=== PATIENT | female | born 1975 | race Caucasian/White ===

== ENCOUNTER 2019-01-31 17:45 | Observation (INO) | payer MEDICAID ==
[2019-01-31] MEDS ORDERED: Sodium Chloride 0.9% 2.5 ML Syringe FLUSH PRN (17:47)
[2019-01-31] MEDS ORDERED: Sodium Chloride 0.9% 10 ML Syringe FLUSH PRN (17:47)
--- NOTE | 2019-01-31 17:51 | EDM.PDOC ---
ED HPI GENERAL MEDICAL PROBLEM - General Stated Complaint: SURG ISSUES--DIZZY, NUMB Time Seen by Provider: 01/31/19 17:47 Source of Information: Reports: Patient History Limitations: Reports: No Limitations - History of Present Illness INITIAL COMMENTS - FREE TEXT/NARRATIVE: History of present illness: []Patient had a thyroidectomy on January [address] Shelton at [facility] and has had some complications with hypcalcemic. She was given an infusion of magnesium but complains of dizziness, numbness and tingling today. Dr. Wetzel brought some of her information her to arrival. Dr. Wetzel is requesting workup and admission. Review of systems: As per history of present illness and below otherwise all systems reviewed and negative. Past medical history: As per history of present illness and as reviewed below otherwise noncontributory. Surgical history: As per history of present illness and as reviewed below otherwise noncontributory. Social history: No reported history of drug or alcohol abuse. Family history: As per history of present illness and as reviewed below otherwise noncontributory. Physical exam: General: Well developed, well nourished in NAD HEENT: Atraumatic, normocephalic, pupils reactive, negative for conjunctival pallor or scleral icterus, mucous membranes moist, throat clear, neck supple, nontender, trachea midline. Lungs: Clear to auscultation, breath sounds equal bilaterally, chest nontender. Heart: S1S2, regular, negative for clicks, rubs, or JVD. Abdomen: NABS, Soft, nondistended, nontender. Negative for masses or hepatosplenomegaly. Negative for costovertebral tenderness. Pelvis: Stable nontender. Genitourinary: Deferred. Rectal: Deferred. Extremities: Atraumatic, negative for cords or calf pain. Neurovascular unremarkable. Neuro: Awake, alert, oriented. Cranial nerves II through XII unremarkable. Cerebellum unremarkable. Motor and sensory unremarkable throughout. Exam nonfocal. Skin:warm and dry Diagnostics: CBC, chemistry, magnesium, phosphorus Therapeutics: Admit ED Course: patient admitted to Dr. Salgado Impression: Hypocalcemia, hypomagnesia, status post thyroidectomy Prescriptions: None Plan: Admit For calcium , magnesium correction Definitive disposition and diagnosis as appropriate pending reevaluation and review of above. throat Pain Score (Numeric/FACES): 7 - Related Data Allergies Allergy/AdvReac Type Severity Reaction Status Date / Time No Known Allergies Allergy Verified 01/31/19 17:58 Home Meds: Home Meds Ibuprofen 200 mg PO ASDIRECTED 05/06/18 [History] Acetaminophen [Tylenol] 650 mg PO Q4H PRN 01/31/19 [History] Acetaminophen/oxyCODONE [Percocet 325-5 MG] 5 - 325 tab PO Q4H PRN 01/31/19 [ History] Calcium Carbonate/Vitamin D3 [Calcium 500+D Tablet Chew] 300 - 500 mg PO TID 06/09 [History] Liothyronine [Cytomel] 25 mcg PO BID 01/31/19 [History] Past Medical History - Past Health History Medical/Surgical History: Denies Medical/Surgical History HEENT History: Reports: Other (See Below) Other HEENT History: 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, , Spontaneous Musculoskeletal History: Reports: Back Pain, Chronic Neurological History: Reports: Migraines, Other (See Below) Other Neuro History: has herniated disc in lumbar area Endocrine/Metabolic History: Reports: Obesity/BMI 30+, Other (See Below) Other Endocrine/Metabolic History: has a "lump" on her thyroid- Ultrasound scheduled Immunologic History: Reports: Other (See Below) Other Immunologic History: 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 - Past Surgical History HEENT Surgical History: Reports: Naso-Sinus Surgery, Tonsillectomy Female Surgical History: Reports: Section, D&C, Other (See Below) Other Female Surgeries/Procedures: Laparoscopy, Hysteroscopy Social & Family History - Caffeine Use Caffeine Use: Reports: Tea ED ROS GENERAL - Review of Systems Review Of Systems: See Below ED EXAM, GENERAL - Physical Exam Exam: See Below Course - Vital Signs Last Recorded V/S: Last Vital Signs Temp 97.2 F 01/31/19 17:50 Pulse 73 01/31/19 17:50 Resp 17 01/31/19 17:50 BP Pulse Ox 98 01/31/19 17:50 - Orders/Labs/Meds Orders: Active Orders 24 hr Category Date Time Status Patient Status [ADT] Stat ADT 01/31/19 18:06 Active Cardiac Monitoring [RC] CONTINUOUS Care 01/31/19 18:19 Active EKG Documentation Completion [RC] STAT Care 01/31/19 18:26 Active Intake and Output [RC] QSHIFT Care 01/31/19 18:19 Active Oxygen Therapy [RC] PRN Care 01/31/19 18:19 Active Up With Assistance [RC] ASDIRECTED Care 01/31/19 18:18 Active VTE/DVT Education [RC] PER UNIT ROUTINE Care 01/31/19 18:19 Active Vital Signs [RC] Q4H Care 01/31/19 18:19 Active Regular Diet [DIET] Diet 01/31/19 Dinner Active COMPREHENSIVE METABOLIC PN,CMP [CHEM] AM Lab 02/01/19 05:11 Ordered MAGNESIUM [CHEM] AM Lab 02/01/19 05:11 Ordered PHOSPHORUS [CHEM] AM Lab 02/01/19 05:11 Ordered Acetaminophen [Tylenol] Med 01/31/19 18:18 Active 650 mg PO Q4H PRN Acetaminophen/HYDROcodone [[place] 325-5 MG] Med 01/31/19 18:18 Active 1 tab PO Q4H PRN Calcium Carbonate/Vitamin D3 [Calcium 500+D Tablet Chew Med 01/31/19 22:00 Active ] 500 mg PO TID Enoxaparin [Lovenox] Med 01/31/19 18:30 Active 40 mg SUBCUT Q24H Liothyronine [Cytomel] Med 01/31/19 21:00 Active 25 mcg PO BID Magnesium Sulfate/Water [Magnesium Sulfate in Water Med 01/31/19 18:46 Active Premix] 2 gm Premix Bag 1 bag IV ONETIME Ondansetron [Zofran ODT] Med 01/31/19 18:18 Active 4 mg PO Q4H PRN Ondansetron [Zofran] Med 01/31/19 18:18 Active 4 mg IVPUSH Q4H PRN Sodium Chloride 0.9% [Saline Flush] Med 01/31/19 17:47 Active 10 ml FLUSH ASDIRECTED PRN Sodium Chloride 0.9% [Saline Flush] Med 01/31/19 17:47 Active 2.5 ml FLUSH ASDIRECTED PRN Saline Lock Insert [OM.PC] Stat Oth 01/31/19 17:47 Ordered Resuscitation Status Routine Resus Stat 01/31/19 18:18 Ordered Medication Orders Acetaminophen (Tylenol) 650 mg PO Q4H PRN PRN Reason: Pain (Mild 1-3)/fever Hydrocodone Bitart/Acetaminophen ([place] 325-5 Mg) 1 tab PO Q4H PRN PRN Reason: Pain (moderate 4-6) Enoxaparin Sodium (Lovenox) 40 mg SUBCUT Q24H [facility] Magnesium Sulfate 2 gm/ Premix 50 mls @ 25 mls/hr IV ONETIME ONE Stop: 01/31/19 20:45 Liothyronine Sodium (Cytomel) 25 mcg PO BID [facility] Non-Formulary Medication (Calcium Carbonate/Vitamin D3 [Calcium 500+D Tablet Chew]) 500 mg PO TID RADHA Ondansetron HCl (Zofran Odt) 4 mg PO Q4H PRN PRN Reason: nausea, able to take PO Ondansetron HCl (Zofran) 4 mg IVPUSH Q4H PRN PRN Reason: Nausea Sodium Chloride (Saline Flush) 10 ml FLUSH ASDIRECTED PRN PRN Reason: Keep Vein Open Sodium Chloride (Saline Flush) 2.5 ml FLUSH ASDIRECTED PRN PRN Reason: Keep Vein Open Labs: Laboratory Tests 01/31/19 01/31/19 01/31/19 Range/Units 18:12 18:12 18:28 WBC 9.24 (4.0-11.0) K/uL RBC 4.46 (4.30-5.90) M/uL Hgb 13.3 (12.0-16.0) g/dL Hct 39.8 (36.0-46.0) % MCV 89.2 (80.0-98.0) fL MCH 29.8 (27.0-32.0) pg MCHC 33.4 (31.0-37.0) g/dL RDW Std Deviation 45.0 (28.0-62.0) fl RDW Coeff of Michael 14 (11.0-15.0) % Plt Count 310 (150-400) K/uL MPV 10.20 (7.40-12.00) fL Neut % (Auto) 55.1 (48.0-80.0) % Lymph % (Auto) 35.7 (16.0-40.0) % [place] % (Auto) 8.0 (0.0-15.0) % Eos % (Auto) 1.0 (0.0-7.0) % Baso % (Auto) 0.2 (0.0-1.5) % Neut # (Auto) 5.1 (1.4-5.7) K/uL Lymph # (Auto) 3.3 H (0.6-2.4) K/uL [place] # (Auto) 0.7 (0.0-0.8) K/uL Eos # (Auto) 0.1 (0.0-0.7) K/uL Baso # (Auto) 0.0 (0.0-0.1) K/uL Nucleated RBC % 0.0 /100WBC Nucleated RBCs # 0 K/uL Ionized Calcium 3.2 L (4.6-5.1) mg/dL Sodium 140 (136-145) mmol/L Potassium 3.9 (3.5-5.1) mmol/L Chloride 103 (98-107) mmol/L Carbon Dioxide 26.0 (21.0-32.0) mmol/L BUN 14 (7.0-18.0) mg/dL Creatinine 0.7 (0.6-1.0) mg/dL Est Cr Clr Drug Dosing 87.49 mL/min Estimated GFR (MDRD) > 60.0 ml/min Glucose 88 (74-106) mg/dL Calcium 6.9 L (8.5-10.1) mg/dL Phosphorus 6.2 H (2.6-4.7) mg/dL Magnesium 1.6 L (1.8-2.4) mg/dL Total Bilirubin 0.6 (0.2-1.0) mg/dL AST 19 (15-37) IU/L ALT 23 (14-63) IU/L Alkaline Phosphatase 97 (46-116) U/L Total Protein 7.2 (6.4-8.2) g/dL Albumin 3.9 (3.4-5.0) g/dL Globulin 3.3 (2.6-4.0) g/dL Albumin/Globulin Ratio 1.2 (0.9-1.6) Meds: Medications Generic Name Dose Route Start Last Admin Trade Name Freq PRN Reason Stop Dose Admin Acetaminophen 650 mg 01/31/19 18:18 Tylenol PO Q4H PRN Pain (Mild 1-3)/fever Hydrocodone Bitart/Acetaminophen 1 tab 01/31/19 18:18 [place] 325-5 Mg PO Q4H PRN Pain (moderate 4-6) Enoxaparin Sodium 40 mg 01/31/19 18:30 Lovenox SUBCUT Q24H RADHA Magnesium Sulfate 2 gm/ Premix 50 mls @ 25 mls/hr 01/31/19 18:46 IV 01/31/19 20:45 ONETIME ONE Liothyronine Sodium 25 mcg 01/31/19 21:00 Cytomel PO BID RADHA Non-Formulary Medication 500 mg 01/31/19 22:00 Calcium Carbonate/Vitamin D3 [Calcium 500+D Tablet Chew] PO TID RADHA Ondansetron HCl 4 mg 01/31/19 18:18 Zofran Odt PO Q4H PRN nausea, able to take PO Ondansetron HCl 4 mg 01/31/19 18:18 Zofran IVPUSH Q4H PRN Nausea Sodium Chloride 10 ml 01/31/19 17:47 Saline Flush FLUSH ASDIRECTED PRN Keep Vein Open Sodium Chloride 2.5 ml 01/31/19 17:47 Saline Flush FLUSH ASDIRECTED PRN Keep Vein Open Discontinued Medications Generic Name Dose Route Start Last Admin Trade Name Freq PRN Reason Stop Dose Admin Calcium Gluconate 2 gm 01/31/19 18:30 Calcium Gluconate IV 01/31/19 18:31 ONETIME ONE Departure - Departure Time of Disposition: 18:46 Disposition: Refer to Observation Condition: Good Clinical Impression: Hypocalcemia, Hypomagnesemia - Discharge Information *PRESCRIPTION DRUG MONITORING PROGRAM REVIEWED*: Not Applicable *COPY OF PRESCRIPTION DRUG MONITORING REPORT IN PATIENT AUDREY: Not Applicable Referrals: PCP,Unknown [Primary Care Provider] - - My Orders Last 24 Hours: My Active Orders 01/31/19 17:47 Sodium Chloride 0.9% [Saline Flush] 10 ml FLUSH ASDIRECTED PRN Sodium Chloride 0.9% [Saline Flush] 2.5 ml FLUSH ASDIRECTED PRN Saline Lock Insert [OM.PC] Stat 01/31/19 18:06 Patient Status [ADT] Stat - Assessment/Plan Last 24 Hours: My Active Orders 01/31/19 17:47 Sodium Chloride 0.9% [Saline Flush] 10 ml FLUSH ASDIRECTED PRN Sodium Chloride 0.9% [Saline Flush] 2.5 ml FLUSH ASDIRECTED PRN Saline Lock Insert [OM.PC] Stat 01/31/19 18:06 Patient Status [ADT] Stat
[2019-01-31] MEDS ORDERED: Ondansetron 4 MG/2 ML SDV IVPUSH PRN (18:18)
[2019-01-31] MEDS ORDERED: Ondansetron 4 MG Tab.DIS PO PRN (18:18)
[2019-01-31] MEDS ORDERED: Acetaminophen 325 MG Tab PO PRN (18:18)
[2019-01-31] MEDS ORDERED: Acetaminophen/HYDROcodone 325-5 MG Tab PO PRN (18:18)
[2019-01-31] MEDS ORDERED: Calcium Gluconate 10% 1 GM/10 ML SDV IV ONE (18:30)
--- NOTE | 2019-01-31 18:37 | PCM.HP ---
H&P History of Present Illness - General Date of Service: 01/31/19 Admit Problem/Dx: Admission Diagnosis/Problem Admission Diagnosis/Problem Hypocalcemia - History of Present Illness Initial Comments - Free Text/Narative: 43-year-old female presents with dizziness and numbness of face, arms, hands, legs and feet. She recently underwent a total thyroidectomy at [facility] on 01/28/19. She had her calcium level checked this morning and it was found to be 7.0. The results were then communicated to Dr. Wetzel who recommended patient go to ER immediately for further evaluation and treatment. Patient reports that the numbness and dizziness started yesterday evening and has been slowly progressing. The numbness first started off in her fingertips and then slowly progressed in her hands, arms, legs and face. She states that she is having difficulty feeling her arms and legs currently. Patient was admitted for further work-up and treatment. She denies having any fevers, nausea, vomiting, chest pain or palpitations. throat Pain Score (Numeric/FACES): 7 - Related Data Allergies/Adverse Reactions: Allergies Allergy/AdvReac Type Severity Reaction Status Date / Time No Known Allergies Allergy Verified 01/31/19 17:58 Home Medications: Home Meds Ibuprofen 200 mg PO ASDIRECTED 05/06/18 [History] Acetaminophen [Tylenol] 650 mg PO Q4H PRN 01/31/19 [History] Acetaminophen/oxyCODONE [Percocet 325-5 MG] 5 - 325 tab PO Q4H PRN 01/31/19 [ History] Calcium Carbonate/Vitamin D3 [Calcium 500+D Tablet Chew] 300 - 500 mg PO TID 06/09 [History] Liothyronine [Cytomel] 25 mcg PO BID 01/31/19 [History] Past Medical History - Past Health History Medical/Surgical History: Denies Medical/Surgical History HEENT History: Reports: Other (See Below) Other HEENT History: 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, , Spontaneous Musculoskeletal History: Reports: Back Pain, Chronic Neurological History: Reports: Migraines, Other (See Below) Other Neuro History: has herniated disc in lumbar area Endocrine/Metabolic History: Reports: Obesity/BMI 30+, Other (See Below) Other Endocrine/Metabolic History: has a "lump" on her thyroid- Ultrasound scheduled Immunologic History: Reports: Other (See Below) Other Immunologic History: 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 Exam - Exam Exam: See Below - Vital Signs Vital Signs: Last Vital Signs Temp 97.2 F 01/31/19 17:50 Pulse 73 01/31/19 17:50 Resp 17 01/31/19 17:50 BP Pulse Ox 98 01/31/19 17:50 Weight: 216 lb 0.848 oz - Exam General: Alert, Oriented, Cooperative, Other (fatigued appearing) HEENT: Conjunctiva Clear, EOMI, Hearing Intact, Posterior Pharynx Clear, Pupils Equal, Other (positive [place] sign) Neck: Supple, Trachea Midline Lungs: Clear to Auscultation, Normal Respiratory Effort Cardiovascular: Regular Rate, Regular Rhythm GI/Abdominal Exam: Normal Bowel Sounds, Soft, Non-Tender, No Distention Extremities: Normal Inspection, No Pedal Edema Skin: Warm, Dry, Intact Neurological: Cranial Nerves Intact, Strength Equal Bilateral, Normal Speech, Other (3/5 strength in upper and lower extremities bilaterally.). No: Sensation Intact Psychiatric: Alert, Normal Affect, Normal Mood - Patient Data Lab Results Last 24 hrs: Laboratory Results - last 24 hr 01/31/19 Range/Units 18:12 WBC 9.24 (4.0-11.0) K/uL RBC 4.46 (4.30-5.90) M/uL Hgb 13.3 (12.0-16.0) g/dL Hct 39.8 (36.0-46.0) % MCV 89.2 (80.0-98.0) fL MCH 29.8 (27.0-32.0) pg MCHC 33.4 (31.0-37.0) g/dL RDW Std Deviation 45.0 (28.0-62.0) fl RDW Coeff of Michael 14 (11.0-15.0) % Plt Count 310 (150-400) K/uL MPV 10.20 (7.40-12.00) fL Neut % (Auto) 55.1 (48.0-80.0) % Lymph % (Auto) 35.7 (16.0-40.0) % [place] % (Auto) 8.0 (0.0-15.0) % Eos % (Auto) 1.0 (0.0-7.0) % Baso % (Auto) 0.2 (0.0-1.5) % Neut # (Auto) 5.1 (1.4-5.7) K/uL Lymph # (Auto) 3.3 H (0.6-2.4) K/uL [place] # (Auto) 0.7 (0.0-0.8) K/uL Eos # (Auto) 0.1 (0.0-0.7) K/uL Baso # (Auto) 0.0 (0.0-0.1) K/uL Nucleated RBC % 0.0 /100WBC Nucleated RBCs # 0 K/uL Result Diagrams: 01/31/19 18:12 01/31/19 18:12 Problem List Initiated/Reviewed/Updated: Yes Orders Last 24hrs: Active Orders 24 hr Category Date Time Status Patient Status [ADT] Stat ADT 01/31/19 18:06 Active Cardiac Monitoring [RC] CONTINUOUS Care 01/31/19 18:19 Active EKG Documentation Completion [RC] STAT Care 01/31/19 18:26 Active Intake and Output [RC] QSHIFT Care 01/31/19 18:19 Active Oxygen Therapy [RC] PRN Care 01/31/19 18:19 Active Up With Assistance [RC] ASDIRECTED Care 01/31/19 18:18 Active VTE/DVT Education [RC] PER UNIT ROUTINE Care 01/31/19 18:19 Active Vital Signs [RC] Q4H Care 01/31/19 18:19 Active Regular Diet [DIET] Diet 01/31/19 Dinner Active COMPREHENSIVE METABOLIC PN,CMP [CHEM] Stat Lab 01/31/19 18:12 Received IONIZED CALCIUM,WHOLE BLOOD [BG] Stat Lab 01/31/19 18:28 Received MAGNESIUM [CHEM] Stat Lab 01/31/19 18:12 Received PHOSPHORUS [CHEM] Stat Lab 01/31/19 18:12 Received Acetaminophen [Tylenol] Med 01/31/19 18:18 Active 650 mg PO Q4H PRN Acetaminophen/HYDROcodone [[place] 325-5 MG] Med 01/31/19 18:18 Active 1 tab PO Q4H PRN Calcium Carbonate/Vitamin D3 [Calcium 500+D Tablet Chew Med 01/31/19 22:00 Active ] 500 mg PO TID Calcium Gluconate Med 01/31/19 18:30 Once 2 gm IV ONETIME ONE Enoxaparin [Lovenox] Med 01/31/19 18:30 Active 40 mg SUBCUT Q24H Liothyronine [Cytomel] Med 01/31/19 21:00 Active 25 mcg PO BID Ondansetron [Zofran ODT] Med 01/31/19 18:18 Active 4 mg PO Q4H PRN Ondansetron [Zofran] Med 01/31/19 18:18 Active 4 mg IVPUSH Q4H PRN Sodium Chloride 0.9% [Saline Flush] Med 01/31/19 17:47 Active 10 ml FLUSH ASDIRECTED PRN Sodium Chloride 0.9% [Saline Flush] Med 01/31/19 17:47 Active 2.5 ml FLUSH ASDIRECTED PRN Saline Lock Insert [OM.PC] Stat Oth 01/31/19 17:47 Ordered Resuscitation Status Routine Resus Stat 01/31/19 18:18 Ordered Medication Orders Acetaminophen (Tylenol) 650 mg PO Q4H PRN PRN Reason: Pain (Mild 1-3)/fever Hydrocodone Bitart/Acetaminophen ([place] 325-5 Mg) 1 tab PO Q4H PRN PRN Reason: Pain (moderate 4-6) Calcium Gluconate (Calcium Gluconate) 2 gm IV ONETIME ONE Stop: 01/31/19 18:31 Enoxaparin Sodium (Lovenox) 40 mg SUBCUT Q24H RADHA Liothyronine Sodium (Cytomel) 25 mcg PO BID RADHA Non-Formulary Medication (Calcium Carbonate/Vitamin D3 [Calcium 500+D Tablet Chew]) 500 mg PO TID RADHA Ondansetron HCl (Zofran Odt) 4 mg PO Q4H PRN PRN Reason: nausea, able to take PO Ondansetron HCl (Zofran) 4 mg IVPUSH Q4H PRN PRN Reason: Nausea Sodium Chloride (Saline Flush) 10 ml FLUSH ASDIRECTED PRN PRN Reason: Keep Vein Open Sodium Chloride (Saline Flush) 2.5 ml FLUSH ASDIRECTED PRN PRN Reason: Keep Vein Open Assessment/Plan Comment:: Assessment: 1. Severe hypocalcemia in a patient with recent total thyroidectomy. 2. Hypomagnesemia. 3. Hyperphosphatemia. 4. Past medical history of Guillan-Leverett syndrome. Plan: 1. For severe hypocalcemia, will start patient on IV calcium gluconate 2 g infusion over 2 hours. Will order EKG. Patient will be on telemetry. Will recheck calcium with AM labs and replete as necessary. 2. Continue home medications. Dispo: 1-2 days.
[2019-01-31 18:41] LABS: CHLORIDE,CL 103 mmol/L (98-107); SODIUM,NA 140 mmol/L (136-145)
[2019-01-31] MEDS ORDERED: Magnesium Sulfate/Water 2 GM in Premix Bag 1 BAG IV ONE (18:46)
[2019-01-31] MEDS: Sodium Chloride 0.9% 250 ML IV SCH (19:19)
[2019-01-31] MEDS: Enoxaparin 40 MG/0.4 ML Syringe SUBCUT SCH (19:25)
[2019-01-31 23:14] LABS: CHLORIDE,CL 102 mmol/L (98-107); SODIUM,NA 139 mmol/L (136-145)
[2019-02-01 06:04] LABS: CHLORIDE,CL 105 mmol/L (98-107); SODIUM,NA 142 mmol/L (136-145)
[2019-02-01] MEDS ORDERED: Magnesium Sulfate/Water 2 GM in Premix Bag 1 BAG IV ONE (07:41)
[2019-02-01] MEDS ORDERED: Calcium Gluconate 10% 1 GM/10 ML SDV IV SCH ×3 (07:45→13:30)
[2019-02-01] MEDS: Sodium Chloride 0.9% 250 ML IV SCH (08:27)
--- NOTE | 2019-02-01 08:52 | PCM.PN ---
<Robert Sumner - Last Filed: 02/01/19 08:53> - General Info Date of Service: 02/01/19 Subjective Update: 43 y/o s/p recent thyroidectomy admitted for severe hypocalcemia. Administered 1 dose of calcium gluconate overnight. Calcium level still low. This morning patient states she feels a little better but still having muscle cramps and tingling. No chest pain,dyspnea. Able to tolerate oral intake. - Patient Data Vitals - Most Recent: Last Vital Signs Temp 35.9 C 02/01/19 03:16 Pulse 84 02/01/19 03:16 Resp 16 02/01/19 03:16 BP 113/66 02/01/19 03:16 Pulse Ox 94 L 02/01/19 03:16 Weight - Most Recent: 99.246 kg I&O - Last 24 Hours: Intake & Output 01/31/19 02/01/19 02/01/19 22:59 06:59 14:59 Intake Total 600 Output Total 700 Balance -100 Lab Results Last 24 Hours: Laboratory Results - last 24 hr 01/31/19 01/31/19 01/31/19 Range/Units 18:12 18:12 18:28 WBC 9.24 (4.0-11.0) K/uL RBC 4.46 (4.30-5.90) M/uL Hgb 13.3 (12.0-16.0) g/dL Hct 39.8 (36.0-46.0) % MCV 89.2 (80.0-98.0) fL MCH 29.8 (27.0-32.0) pg MCHC 33.4 (31.0-37.0) g/dL RDW Std Deviation 45.0 (28.0-62.0) fl RDW Coeff of Michael 14 (11.0-15.0) % Plt Count 310 (150-400) K/uL MPV 10.20 (7.40-12.00) fL Neut % (Auto) 55.1 (48.0-80.0) % Lymph % (Auto) 35.7 (16.0-40.0) % Logan % (Auto) 8.0 (0.0-15.0) % Eos % (Auto) 1.0 (0.0-7.0) % Baso % (Auto) 0.2 (0.0-1.5) % Neut # (Auto) 5.1 (1.4-5.7) K/uL Lymph # (Auto) 3.3 H (0.6-2.4) K/uL Logan # (Auto) 0.7 (0.0-0.8) K/uL Eos # (Auto) 0.1 (0.0-0.7) K/uL Baso # (Auto) 0.0 (0.0-0.1) K/uL Nucleated RBC % 0.0 /100WBC Nucleated RBCs # 0 K/uL Ionized Calcium 3.2 L (4.6-5.1) mg/dL Sodium 140 (136-145) mmol/L Potassium 3.9 (3.5-5.1) mmol/L Chloride 103 (98-107) mmol/L Carbon Dioxide 26.0 (21.0-32.0) mmol/L BUN 14 (7.0-18.0) mg/dL Creatinine 0.7 (0.6-1.0) mg/dL Est Cr Clr Drug Dosing 87.49 mL/min Estimated GFR (MDRD) > 60.0 ml/min Glucose 88 (74-106) mg/dL Calcium 6.9 L (8.5-10.1) mg/dL Phosphorus 6.2 H (2.6-4.7) mg/dL Magnesium 1.6 L (1.8-2.4) mg/dL Total Bilirubin 0.6 (0.2-1.0) mg/dL AST 19 (15-37) IU/L ALT 23 (14-63) IU/L Alkaline Phosphatase 97 (46-116) U/L Total Protein 7.2 (6.4-8.2) g/dL Albumin 3.9 (3.4-5.0) g/dL Globulin 3.3 (2.6-4.0) g/dL Albumin/Globulin Ratio 1.2 (0.9-1.6) 01/31/19 02/01/19 Range/Units 22:56 05:26 WBC (4.0-11.0) K/uL RBC (4.30-5.90) M/uL Hgb (12.0-16.0) g/dL Hct (36.0-46.0) % MCV (80.0-98.0) fL MCH (27.0-32.0) pg MCHC (31.0-37.0) g/dL RDW Std Deviation (28.0-62.0) fl RDW Coeff of Michael (11.0-15.0) % Plt Count (150-400) K/uL MPV (7.40-12.00) fL Neut % (Auto) (48.0-80.0) % Lymph % (Auto) (16.0-40.0) % Logan % (Auto) (0.0-15.0) % Eos % (Auto) (0.0-7.0) % Baso % (Auto) (0.0-1.5) % Neut # (Auto) (1.4-5.7) K/uL Lymph # (Auto) (0.6-2.4) K/uL Logan # (Auto) (0.0-0.8) K/uL Eos # (Auto) (0.0-0.7) K/uL Baso # (Auto) (0.0-0.1) K/uL Nucleated RBC % /100WBC Nucleated RBCs # K/uL Ionized Calcium (4.6-5.1) mg/dL Sodium 139 142 (136-145) mmol/L Potassium 3.6 4.1 (3.5-5.1) mmol/L Chloride 102 105 (98-107) mmol/L Carbon Dioxide 25.1 25.7 (21.0-32.0) mmol/L BUN 14 15 (7.0-18.0) mg/dL Creatinine 0.8 0.8 (0.6-1.0) mg/dL Est Cr Clr Drug Dosing 76.53 76.53 mL/min Estimated GFR (MDRD) > 60.0 > 60.0 ml/min Glucose 140 H 94 (74-106) mg/dL Calcium 7.2 L 6.8 L (8.5-10.1) mg/dL Phosphorus 6.2 H (2.6-4.7) mg/dL Magnesium 1.9 (1.8-2.4) mg/dL Total Bilirubin 0.6 (0.2-1.0) mg/dL AST 14 L (15-37) IU/L ALT 22 (14-63) IU/L Alkaline Phosphatase 90 (46-116) U/L Total Protein 6.6 (6.4-8.2) g/dL Albumin 3.5 (3.4-5.0) g/dL Globulin 3.1 (2.6-4.0) g/dL Albumin/Globulin Ratio 1.1 (0.9-1.6) Med Orders - Current: Current Medications Acetaminophen (Tylenol) 650 mg PO Q4H PRN PRN Reason: Pain (Mild 1-3)/fever Last Admin: 02/01/19 08:25 Dose: 650 mg Hydrocodone Bitart/Acetaminophen ([place] 325-5 Mg) 1 tab PO Q4H PRN PRN Reason: Pain (moderate 4-6) Enoxaparin Sodium (Lovenox) 40 mg SUBCUT Q24H [facility] Last Admin: 01/31/19 19:25 Dose: 40 mg Sodium Chloride (Normal Saline) 250 mls @ 50 mls/hr IV ASDIRECTED [facility] Last Admin: 02/01/19 08:27 Dose: 50 mls/hr Magnesium Sulfate 2 gm/ Premix 50 mls @ 25 mls/hr IV ONETIME ONE Stop: 02/01/19 09:40 Last Admin: 02/01/19 08:44 Dose: 25 mls/hr Calcium Gluconate 2 gm/ Sodium (Chloride) 70 mls @ 70 mls/hr IV Q2H [facility] Stop: 02/01/19 13:29 Last Admin: 02/01/19 08:44 Dose: 70 mls/hr Liothyronine Sodium (Cytomel) 25 mcg PO BID [facility] Last Admin: 02/01/19 08:26 Dose: 25 mcg Non-Formulary Medication (Calcium Carbonate/Vitamin D3 [Calcium 500+D Tablet Chew]) 500 mg PO TID [facility] Last Admin: 02/01/19 06:44 Dose: 500 mg Ondansetron HCl (Zofran Odt) 4 mg PO Q4H PRN PRN Reason: nausea, able to take PO Ondansetron HCl (Zofran) 4 mg IVPUSH Q4H PRN PRN Reason: Nausea Sodium Chloride (Saline Flush) 10 ml FLUSH ASDIRECTED PRN PRN Reason: Keep Vein Open Sodium Chloride (Saline Flush) 2.5 ml FLUSH ASDIRECTED PRN PRN Reason: Keep Vein Open Discontinued Medications Calcium Gluconate (Calcium Gluconate) 2 gm IV ONETIME ONE Stop: 01/31/19 18:31 Last Admin: 01/31/19 19:15 Dose: 2 gm Magnesium Sulfate 2 gm/ Premix 50 mls @ 25 mls/hr IV ONETIME ONE Stop: 01/31/19 20:45 Last Admin: 01/31/19 19:07 Dose: 25 mls/hr Calcium Gluconate 2 gm/ Sodium (Chloride) 70 mls @ 70 mls/hr IV Q3H [facility] Stop: 02/01/19 14:59 - Exam General: Alert, Oriented, Cooperative, No Acute Distress Lungs: Clear to Auscultation, Normal Respiratory Effort Cardiovascular: Regular Rate, Regular Rhythm GI/Abdominal Exam: Normal Bowel Sounds, Soft, Non-Tender, No Distention Extremities: No Pedal Edema Skin: Warm, Dry - Problem List Review Problem List Initiated/Reviewed/Updated: Yes - My Orders Last 24 Hours: My Active Orders 01/31/19 18:18 Up With Assistance [RC] Q12H Acetaminophen [Tylenol] 650 mg PO Q4H PRN Acetaminophen/HYDROcodone [[place] 325-5 MG] 1 tab PO Q4H PRN Ondansetron [Zofran ODT] 4 mg PO Q4H PRN Ondansetron [Zofran] 4 mg IVPUSH Q4H PRN Resuscitation Status Routine 01/31/19 18:19 Cardiac Monitoring [RC] CONTINUOUS Intake and Output [RC] Q12H Oxygen Therapy [RC] PRN VTE/DVT Education [RC] PER UNIT ROUTINE Vital Signs [RC] Q4H 01/31/19 18:30 Enoxaparin [Lovenox] 40 mg SUBCUT Q24H 01/31/19 21:00 Liothyronine [Cytomel] 25 mcg PO BID 01/31/19 22:00 Calcium Carbonate/Vitamin D3 [Calcium 500+D Tablet Chew] 500 mg PO TID 01/31/19 Dinner Regular Diet [DIET] 02/01/19 07:41 Magnesium Sulfate/Water [Magnesium Sulfate in Water Premix] 2 gm Premix Bag 1 bag IV ONETIME 02/01/19 08:30 Calcium Gluconate 2 gm Sodium Chloride 0.9% [Normal Saline] 50 ml IV Q2H 02/01/19 11:00 COMPREHENSIVE METABOLIC PN,CMP [CHEM] Routine - Plan Plan:: Assessment: 1. Severe hypocalcemia s/p thyroidectomy 2. Hyperphosphatemia 3. Hypomagnesemia Plan: 1. Calcium levels still low. Will order Calcium gluconate 2 g IV Q 2H for 3 doses. Continue Ca-VitD supplementation. Will recheck calcium level today. Will give MgS 2 g IV once. Recheck Mg level. Should be ready for discharge tomorrow. <Pasquale Delgado - Last Filed: 02/01/19 10:11> - General Info Admission Dx/Problem (Free Text): I have examined the patient independently of hospital medical assistant, Dr. Rebeka MD. I have discussed the case with him. I have reviewed and agree with the examination and plan as outlined by him. Please see orders. - Patient Data Vitals - Most Recent: Last Vital Signs Temp 35.9 C 02/01/19 03:16 Pulse 84 02/01/19 03:16 Resp 16 02/01/19 03:16 BP 113/66 02/01/19 03:16 Pulse Ox 94 L 02/01/19 03:16 I&O - Last 24 Hours: Intake & Output 01/31/19 02/01/19 02/01/19 22:59 06:59 14:59 Intake Total 600 Output Total 700 Balance -100 Lab Results Last 24 Hours: Laboratory Results - last 24 hr 01/31/19 01/31/19 01/31/19 Range/Units 18:12 18:12 18:28 WBC 9.24 (4.0-11.0) K/uL RBC 4.46 (4.30-5.90) M/uL Hgb 13.3 (12.0-16.0) g/dL Hct 39.8 (36.0-46.0) % MCV 89.2 (80.0-98.0) fL MCH 29.8 (27.0-32.0) pg MCHC 33.4 (31.0-37.0) g/dL RDW Std Deviation 45.0 (28.0-62.0) fl RDW Coeff of Michael 14 (11.0-15.0) % Plt Count 310 (150-400) K/uL MPV 10.20 (7.40-12.00) fL Neut % (Auto) 55.1 (48.0-80.0) % Lymph % (Auto) 35.7 (16.0-40.0) % Logan % (Auto) 8.0 (0.0-15.0) % Eos % (Auto) 1.0 (0.0-7.0) % Baso % (Auto) 0.2 (0.0-1.5) % Neut # (Auto) 5.1 (1.4-5.7) K/uL Lymph # (Auto) 3.3 H (0.6-2.4) K/uL Logan # (Auto) 0.7 (0.0-0.8) K/uL Eos # (Auto) 0.1 (0.0-0.7) K/uL Baso # (Auto) 0.0 (0.0-0.1) K/uL Nucleated RBC % 0.0 /100WBC Nucleated RBCs # 0 K/uL Ionized Calcium 3.2 L (4.6-5.1) mg/dL Sodium 140 (136-145) mmol/L Potassium 3.9 (3.5-5.1) mmol/L Chloride 103 (98-107) mmol/L Carbon Dioxide 26.0 (21.0-32.0) mmol/L BUN 14 (7.0-18.0) mg/dL Creatinine 0.7 (0.6-1.0) mg/dL Est Cr Clr Drug Dosing 87.49 mL/min Estimated GFR (MDRD) > 60.0 ml/min Glucose 88 (74-106) mg/dL Calcium 6.9 L (8.5-10.1) mg/dL Phosphorus 6.2 H (2.6-4.7) mg/dL Magnesium 1.6 L (1.8-2.4) mg/dL Total Bilirubin 0.6 (0.2-1.0) mg/dL AST 19 (15-37) IU/L ALT 23 (14-63) IU/L Alkaline Phosphatase 97 (46-116) U/L Total Protein 7.2 (6.4-8.2) g/dL Albumin 3.9 (3.4-5.0) g/dL Globulin 3.3 (2.6-4.0) g/dL Albumin/Globulin Ratio 1.2 (0.9-1.6) 01/31/19 02/01/19 Range/Units 22:56 05:26 WBC (4.0-11.0) K/uL RBC (4.30-5.90) M/uL Hgb (12.0-16.0) g/dL Hct (36.0-46.0) % MCV (80.0-98.0) fL MCH (27.0-32.0) pg MCHC (31.0-37.0) g/dL RDW Std Deviation (28.0-62.0) fl RDW Coeff of Michael (11.0-15.0) % Plt Count (150-400) K/uL MPV (7.40-12.00) fL Neut % (Auto) (48.0-80.0) % Lymph % (Auto) (16.0-40.0) % Logan % (Auto) (0.0-15.0) % Eos % (Auto) (0.0-7.0) % Baso % (Auto) (0.0-1.5) % Neut # (Auto) (1.4-5.7) K/uL Lymph # (Auto) (0.6-2.4) K/uL Logan # (Auto) (0.0-0.8) K/uL Eos # (Auto) (0.0-0.7) K/uL Baso # (Auto) (0.0-0.1) K/uL Nucleated RBC % /100WBC Nucleated RBCs # K/uL Ionized Calcium (4.6-5.1) mg/dL Sodium 139 142 (136-145) mmol/L Potassium 3.6 4.1 (3.5-5.1) mmol/L Chloride 102 105 (98-107) mmol/L Carbon Dioxide 25.1 25.7 (21.0-32.0) mmol/L BUN 14 15 (7.0-18.0) mg/dL Creatinine 0.8 0.8 (0.6-1.0) mg/dL Est Cr Clr Drug Dosing 76.53 76.53 mL/min Estimated GFR (MDRD) > 60.0 > 60.0 ml/min Glucose 140 H 94 (74-106) mg/dL Calcium 7.2 L 6.8 L (8.5-10.1) mg/dL Phosphorus 6.2 H (2.6-4.7) mg/dL Magnesium 1.9 (1.8-2.4) mg/dL Total Bilirubin 0.6 (0.2-1.0) mg/dL AST 14 L (15-37) IU/L ALT 22 (14-63) IU/L Alkaline Phosphatase 90 (46-116) U/L Total Protein 6.6 (6.4-8.2) g/dL Albumin 3.5 (3.4-5.0) g/dL Globulin 3.1 (2.6-4.0) g/dL Albumin/Globulin Ratio 1.1 (0.9-1.6) Med Orders - Current: Current Medications Acetaminophen (Tylenol) 650 mg PO Q4H PRN PRN Reason: Pain (Mild 1-3)/fever Last Admin: 02/01/19 08:25 Dose: 650 mg Hydrocodone Bitart/Acetaminophen ([place] 325-5 Mg) 1 tab PO Q4H PRN PRN Reason: Pain (moderate 4-6) Enoxaparin Sodium (Lovenox) 40 mg SUBCUT Q24H [facility] Last Admin: 01/31/19 19:25 Dose: 40 mg Sodium Chloride (Normal Saline) 250 mls @ 50 mls/hr IV ASDIRECTED [facility] Last Admin: 02/01/19 08:27 Dose: 50 mls/hr Calcium Gluconate 2 gm/ Sodium (Chloride) 70 mls @ 70 mls/hr IV Q2H [facility] Stop: 02/01/19 13:29 Last Admin: 02/01/19 08:44 Dose: 70 mls/hr Liothyronine Sodium (Cytomel) 25 mcg PO BID [facility] Last Admin: 02/01/19 08:26 Dose: 25 mcg Non-Formulary Medication (Calcium Carbonate/Vitamin D3 [Calcium 500+D Tablet Chew]) 500 mg PO TID [facility] Last Admin: 02/01/19 06:44 Dose: 500 mg Ondansetron HCl (Zofran Odt) 4 mg PO Q4H PRN PRN Reason: nausea, able to take PO Ondansetron HCl (Zofran) 4 mg IVPUSH Q4H PRN PRN Reason: Nausea Sodium Chloride (Saline Flush) 10 ml FLUSH ASDIRECTED PRN PRN Reason: Keep Vein Open Sodium Chloride (Saline Flush) 2.5 ml FLUSH ASDIRECTED PRN PRN Reason: Keep Vein Open Discontinued Medications Calcium Gluconate (Calcium Gluconate) 2 gm IV ONETIME ONE Stop: 01/31/19 18:31 Last Admin: 01/31/19 19:15 Dose: 2 gm Magnesium Sulfate 2 gm/ Premix 50 mls @ 25 mls/hr IV ONETIME ONE Stop: 01/31/19 20:45 Last Admin: 01/31/19 19:07 Dose: 25 mls/hr Calcium Gluconate 2 gm/ Sodium (Chloride) 70 mls @ 70 mls/hr IV Q3H [facility] Stop: 02/01/19 14:59 Magnesium Sulfate 2 gm/ Premix 50 mls @ 25 mls/hr IV ONETIME ONE Stop: 02/01/19 09:40 Last Admin: 02/01/19 08:44 Dose: 25 mls/hr
[2019-02-01 11:40] LABS: CHLORIDE,CL 105 mmol/L (98-107); SODIUM,NA 140 mmol/L (136-145)
[2019-02-01 16:33] LABS: CHLORIDE,CL 105 mmol/L (98-107); SODIUM,NA 141 mmol/L (136-145)
[2019-02-01] MEDS: Enoxaparin 40 MG/0.4 ML Syringe SUBCUT SCH (17:42)
[2019-02-02 06:34] LABS: CHLORIDE,CL 107 mmol/L (98-107); SODIUM,NA 141 mmol/L (136-145)
[2019-02-02] MEDS: Calcium Carbonate/Vitamin D3 1500 MG-400 Units Tab PO SCH ×2 (08:01→13:32)
[2019-02-02] MEDS ORDERED: Calcium Gluconate 10% 1 GM/10 ML SDV IV STA (08:24)
[2019-02-02 12:27] LABS: CHLORIDE,CL 106 mmol/L (98-107); SODIUM,NA 143 mmol/L (136-145)
[2019-02-02 12:44] VITALS: BP 127/74
--- NOTE | 2019-02-02 13:19 | PCM.DCSUM1 ---
<Robert Sumner - Last Filed: 02/02/19 13:20> Discharge Summary - Hospital Course Free Text/Narrative:: 43 y/o female s/p thyroidectomy who presented to the ER complaining of tingling and myalgias. Found to have Ca level of 6.9. Admitted for symptomatic hypocalcemia requiring several calcium gluconate administrations. Magnesium was replenished. EKG did not show any acute changes. She required several calcium gluconate administration to maintain Ca level above 8.0. At time of discharge her calcium level was 8.5. She was discharged home with instructions to take medications sent by her painter foreman to her pharmacy which included Os-Alber and Calcitriol. She was instructed to follow-up with Dr. Wetzel for repeat Ca level and her painter foreman. - Discharge Data Discharge Date: 02/02/19 Discharge Disposition: Home, Self-Care 01 Condition: Fair - Patient Instructions Diet: Usual Diet as Tolerated Activity: As Tolerated Notify Provider of: Fever, Increased Pain, Swelling and Redness, Nausea and/or Vomiting Other/Special Instructions: Please take new medications that have been sent to your pharmacy by your painter foreman. Follow-up with Dr. Wetzel to recheck calcium level. - Discharge Plan *PRESCRIPTION DRUG MONITORING PROGRAM REVIEWED*: Not Applicable *COPY OF PRESCRIPTION DRUG MONITORING REPORT IN PATIENT AUDREY: Not Applicable Home Medications: Home Meds Ibuprofen 200 mg PO ASDIRECTED 05/06/18 [History] Liothyronine [Cytomel] 25 mcg PO BID 01/31/19 [History] Patient Handouts: Hypomagnesemia, Hypocalcemia, Adult Referrals: [facility] [Outside] Ford Wetzel MD [Physician] - (Call the clinic and make a 1 week follow up appointment with Dr. Wetzel) - Discharge Summary/Plan Comment DC Time >30 min.: No - Patient Data Vitals - Most Recent: Last Vital Signs Temp 36.7 C 02/02/19 12:00 Pulse 84 02/02/19 12:00 Resp 16 02/02/19 12:00 BP 127/74 02/02/19 12:00 Pulse Ox 99 02/02/19 12:00 Weight - Most Recent: 99.246 kg I&O - Last 24 hours: Intake & Output 02/01/19 02/02/19 02/02/19 22:59 06:59 14:59 Intake Total 1240 740 Output Total 950 1000 Balance 290 -260 Lab Results - Last 24 hrs: Laboratory Results - last 24 hr 02/01/19 02/02/19 02/02/19 Range/Units 16:07 05:45 11:55 Sodium 141 141 143 (136-145) mmol/L Potassium 4.2 4.6 4.6 (3.5-5.1) mmol/L Chloride 105 107 106 (98-107) mmol/L Carbon Dioxide 25.7 23.9 26.4 (21.0-32.0) mmol/L BUN 14 16 15 (7.0-18.0) mg/dL Creatinine 0.8 1.0 0.9 (0.6-1.0) mg/dL Est Cr Clr Drug Dosing 76.53 61.22 68.02 mL/min Estimated GFR (MDRD) > 60.0 > 60.0 > 60.0 ml/min Glucose 107 H 97 103 (74-106) mg/dL Calcium 9.0 8.0 L 8.5 (8.5-10.1) mg/dL Magnesium 2.1 (1.8-2.4) mg/dL Total Bilirubin 0.6 0.4 0.4 (0.2-1.0) mg/dL AST 18 15 15 (15-37) IU/L ALT 26 24 27 (14-63) IU/L Alkaline Phosphatase 93 87 97 (46-116) U/L Total Protein 6.8 6.7 7.1 (6.4-8.2) g/dL Albumin 3.6 3.5 3.8 (3.4-5.0) g/dL Globulin 3.2 3.2 3.3 (2.6-4.0) g/dL Albumin/Globulin Ratio 1.1 1.1 1.2 (0.9-1.6) Med Orders - Current: Current Medications Acetaminophen (Tylenol) 650 mg PO Q4H PRN PRN Reason: Pain (Mild 1-3)/fever Last Admin: 02/01/19 08:25 Dose: 650 mg Hydrocodone Bitart/Acetaminophen ([place] 325-5 Mg) 1 tab PO Q4H PRN PRN Reason: Pain (moderate 4-6) Calcium Carbonate (Caltrate 600+D 1500 Mg-400 Units) 1 tab PO TIDMEALS [facility] Last Admin: 02/02/19 08:01 Dose: 1 tab Enoxaparin Sodium (Lovenox) 40 mg SUBCUT Q24H [facility] Last Admin: 02/01/19 17:42 Dose: Not Given Liothyronine Sodium (Cytomel) 25 mcg PO BID [facility] Last Admin: 02/02/19 07:59 Dose: 25 mcg Ondansetron HCl (Zofran Odt) 4 mg PO Q4H PRN PRN Reason: nausea, able to take PO Ondansetron HCl (Zofran) 4 mg IVPUSH Q4H PRN PRN Reason: Nausea Sodium Chloride (Saline Flush) 10 ml FLUSH ASDIRECTED PRN PRN Reason: Keep Vein Open Sodium Chloride (Saline Flush) 2.5 ml FLUSH ASDIRECTED PRN PRN Reason: Keep Vein Open Discontinued Medications Calcium Gluconate (Calcium Gluconate) 2 gm IV ONETIME ONE Stop: 01/31/19 18:31 Last Admin: 01/31/19 19:15 Dose: 2 gm Calcium Gluconate (Calcium Gluconate) 1 gm IV Q2H [facility] Stop: 02/01/19 17:31 Calcium Gluconate (Calcium Gluconate) 2 gm IV Q2H [facility] Stop: 02/01/19 17:31 Last Admin: 02/01/19 14:34 Dose: Not Given Calcium Gluconate (Calcium Gluconate) 1 gm IV NOW [facility] Stop: 02/02/19 08:25 Magnesium Sulfate 2 gm/ Premix 50 mls @ 25 mls/hr IV ONETIME ONE Stop: 01/31/19 20:45 Last Admin: 01/31/19 19:07 Dose: 25 mls/hr Sodium Chloride (Normal Saline) 250 mls @ 50 mls/hr IV ASDIRECTED [facility] Last Admin: 02/01/19 08:27 Dose: 50 mls/hr Calcium Gluconate 2 gm/ Sodium (Chloride) 70 mls @ 70 mls/hr IV Q3H [facility] Stop: 02/01/19 14:59 Last Admin: 02/01/19 10:51 Dose: Not Given Magnesium Sulfate 2 gm/ Premix 50 mls @ 25 mls/hr IV ONETIME ONE Stop: 02/01/19 09:40 Last Admin: 02/01/19 08:44 Dose: 25 mls/hr Calcium Gluconate 2 gm/ Sodium (Chloride) 70 mls @ 70 mls/hr IV Q2H [facility] Stop: 02/01/19 13:29 Last Admin: 02/01/19 13:15 Dose: 70 mls/hr Calcium Gluconate 2 gm/ Sodium (Chloride) 70 mls @ 70 mls/hr IV Q2H [facility] Stop: 02/01/19 18:44 Last Admin: 02/01/19 14:34 Dose: Not Given Calcium Gluconate 2 gm/ Sodium (Chloride) 70 mls @ 70 mls/hr IV Q2H [facility] Stop: 02/01/19 20:14 Last Admin: 02/01/19 17:38 Dose: Not Given Calcium Gluconate 1 gm/ Sodium (Chloride) 60 mls @ 60 mls/hr IV ONETIME ONE Stop: 02/02/19 09:44 Last Admin: 02/02/19 08:55 Dose: 60 mls/hr Non-Formulary Medication (Calcium Carbonate/Vitamin D3 [Calcium 500+D Tablet Chew]) 500 mg PO TID [facility] Last Admin: 02/02/19 05:50 Dose: 500 mg <Pasquale Delgado - Last Filed: 02/03/19 08:11> Discharge Summary - Hospital Course HPI Initial Comments: I have examined the patient independently of medical insurance verifier, Dr. Rebeka MD. I have discussed the case with him. I have reviewed and agree with the examination and plan as outlined by him. Please see orders. - Patient Data Vitals - Most Recent: Last Vital Signs Temp 36.7 C 02/02/19 12:00 Pulse 84 02/02/19 12:00 Resp 16 02/02/19 12:00 BP 127/74 02/02/19 12:00 Pulse Ox 99 02/02/19 12:00 Lab Results - Last 24 hrs: Laboratory Results - last 24 hr 02/02/19 Range/Units 11:55 Sodium 143 (136-145) mmol/L Potassium 4.6 (3.5-5.1) mmol/L Chloride 106 (98-107) mmol/L Carbon Dioxide 26.4 (21.0-32.0) mmol/L BUN 15 (7.0-18.0) mg/dL Creatinine 0.9 (0.6-1.0) mg/dL Est Cr Clr Drug Dosing 68.02 mL/min Estimated GFR (MDRD) > 60.0 ml/min Glucose 103 (74-106) mg/dL Calcium 8.5 (8.5-10.1) mg/dL Total Bilirubin 0.4 (0.2-1.0) mg/dL AST 15 (15-37) IU/L ALT 27 (14-63) IU/L Alkaline Phosphatase 97 (46-116) U/L Total Protein 7.1 (6.4-8.2) g/dL Albumin 3.8 (3.4-5.0) g/dL Globulin 3.3 (2.6-4.0) g/dL Albumin/Globulin Ratio 1.2 (0.9-1.6) Med Orders - Current: Current Medications Discontinued Medications Acetaminophen (Tylenol) 650 mg PO Q4H PRN PRN Reason: Pain (Mild 1-3)/fever Last Admin: 02/01/19 08:25 Dose: 650 mg Hydrocodone Bitart/Acetaminophen ([place] 325-5 Mg) 1 tab PO Q4H PRN PRN Reason: Pain (moderate 4-6) Calcium Carbonate (Caltrate 600+D 1500 Mg-400 Units) 1 tab PO TIDMEALS [facility] Last Admin: 02/02/19 13:32 Dose: 1 tab Calcium Gluconate (Calcium Gluconate) 2 gm IV ONETIME ONE Stop: 01/31/19 18:31 Last Admin: 01/31/19 19:15 Dose: 2 gm Calcium Gluconate (Calcium Gluconate) 1 gm IV Q2H RADHA Stop: 02/01/19 17:31 Calcium Gluconate (Calcium Gluconate) 2 gm IV Q2H RADHA Stop: 02/01/19 17:31 Last Admin: 02/01/19 14:34 Dose: Not Given Calcium Gluconate (Calcium Gluconate) 1 gm IV NOW STA Stop: 02/02/19 08:25 Enoxaparin Sodium (Lovenox) 40 mg SUBCUT Q24H [facility] Last Admin: 02/01/19 17:42 Dose: Not Given Magnesium Sulfate 2 gm/ Premix 50 mls @ 25 mls/hr IV ONETIME ONE Stop: 01/31/19 20:45 Last Admin: 01/31/19 19:07 Dose: 25 mls/hr Sodium Chloride (Normal Saline) 250 mls @ 50 mls/hr IV ASDIRECTED [facility] Last Admin: 02/01/19 08:27 Dose: 50 mls/hr Calcium Gluconate 2 gm/ Sodium (Chloride) 70 mls @ 70 mls/hr IV Q3H [facility] Stop: 02/01/19 14:59 Last Admin: 02/01/19 10:51 Dose: Not Given Magnesium Sulfate 2 gm/ Premix 50 mls @ 25 mls/hr IV ONETIME ONE Stop: 02/01/19 09:40 Last Admin: 02/01/19 08:44 Dose: 25 mls/hr Calcium Gluconate 2 gm/ Sodium (Chloride) 70 mls @ 70 mls/hr IV Q2H [facility] Stop: 02/01/19 13:29 Last Admin: 02/01/19 13:15 Dose: 70 mls/hr Calcium Gluconate 2 gm/ Sodium (Chloride) 70 mls @ 70 mls/hr IV Q2H [facility] Stop: 02/01/19 18:44 Last Admin: 02/01/19 14:34 Dose: Not Given Calcium Gluconate 2 gm/ Sodium (Chloride) 70 mls @ 70 mls/hr IV Q2H [facility] Stop: 02/01/19 20:14 Last Admin: 02/01/19 17:38 Dose: Not Given Calcium Gluconate 1 gm/ Sodium (Chloride) 60 mls @ 60 mls/hr IV ONETIME ONE Stop: 02/02/19 09:44 Last Admin: 02/02/19 08:55 Dose: 60 mls/hr Liothyronine Sodium (Cytomel) 25 mcg PO BID [facility] Last Admin: 02/02/19 07:59 Dose: 25 mcg Non-Formulary Medication (Calcium Carbonate/Vitamin D3 [Calcium 500+D Tablet Chew]) 500 mg PO TID [facility] Last Admin: 02/02/19 05:50 Dose: 500 mg Ondansetron HCl (Zofran Odt) 4 mg PO Q4H PRN PRN Reason: nausea, able to take PO Ondansetron HCl (Zofran) 4 mg IVPUSH Q4H PRN PRN Reason: Nausea Sodium Chloride (Saline Flush) 10 ml FLUSH ASDIRECTED PRN PRN Reason: Keep Vein Open Sodium Chloride (Saline Flush) 2.5 ml FLUSH ASDIRECTED PRN PRN Reason: Keep Vein Open
== END 2019-02-02 14:33 | disposition home or self-care (01) ==
LOC: MW.ED 17:45 → MW.MS 18:06
PROVIDERS: ADMIT Internal Medicine; ATTEND Internal Medicine
DX: E16.2 Hypoglycemia, unspecified (principal); E83.51 Hypocalcemia; E83.42 Hypomagnesemia; E83.39 Other disorders of phosphorus metabolism; E66.9 Obesity, unspecified; Z68.38 Body mass index [BMI] 38.0-38.9, adult; Z90.89 Acquired absence of other organs; C73 Malignant neoplasm of thyroid gland; E89.0 Postprocedural hypothyroidism
CPT/HCPCS: 36415; 80048; 80053; 82310; 82330; 83735; 84100; 85025; 96365; 96372; 96375; 99285; A9270; J0610; J1650; J3475; J7050; 96361; 96366; 96367; 96376; 99284; G0378

== ENCOUNTER 2025-01-03 08:33 | Day surgery (SDC) | payer MEDICAID ==
[~2025-01-03 08:33] MED LIST: Sodium Chloride 0.9% 10 ML Syringe FLUSH PRN; Sodium Chloride 0.9% 2.5 ML Syringe FLUSH PRN
[2025-01-03] MEDS: Lactated Ringers 1,000 ML IV SCH (09:18)
[2025-01-03] MEDS ORDERED: propofoL 500 MG/50 ML 50 ML ONE (10:03)
[2025-01-03 12:12] VITALS: BP 111/56; PULSE 60
== END 2025-01-03 11:32 | disposition home or self-care (01) ==
LOC: MW.SDS 08:33
PROVIDERS: ATTEND Surgery
DX: K31.7 Polyp of stomach and duodenum (principal); K64.3 Fourth degree hemorrhoids; R19.4 Change in bowel habit; E66.811 Obesity, class 1; E03.9 Hypothyroidism, unspecified; Z68.29 Body mass index [BMI] 29.0-29.9, adult; Z79.890 Hormone replacement therapy; Z79.899 Other long term (current) drug therapy
CPT/HCPCS: 43239; 45380; J2704; J7120; 00813